=== PATIENT | female | born 1970 | race Caucasian/White ===

== ENCOUNTER → 2021-08-11 | Outpatient (CLI) | payer OTHER ==
--- NOTE | 2021-08-11 12:05 | Diagnostic Imaging Report ---
INDICATION: Patellar fracture AP, oblique and lateral views of left knee are obtained with sunrise view. There is no previous study available at this time for comparison. No acute fracture or malalignment is identified. There is no significant hemarthrosis. Linear lucency is seen along the anterior, lateral aspect of the patella which may represent site of previous fracture. There is no evidence of articular surface irregularity. IMPRESSION: No acute abnormality is identified. Lucency is seen in the lateral patella which may be related to previous injury. Dictated by: Dictated on workstation # [id number]
== END ==
LOC: RAD FS 11:32
PROVIDERS: ATTEND Nurse Practitioner
DX: S82.092A Other fracture of left patella, initial encounter for closed fracture (principal); X58.XXXA Exposure to other specified factors, initial encounter
CPT/HCPCS: 73562

== ENCOUNTER → 2021-09-01 | Outpatient (CLI) | payer OTHER ==
--- NOTE | 2021-09-01 13:33 | Diagnostic Imaging Report ---
INDICATION: Follow-up patellar fracture. TIME OF EXAM: 11:10 a.m. COMPARISON: Comparison is made with prior radiographs from 08/11/2021. FINDINGS: Patellar alignment is stable. The fracture involving the lateral aspect of the patella is less apparent and more blurred on today's study consistent with healing fracture. Joint spaces are well maintained. Articular surfaces are smooth. There is no effusion. IMPRESSION: Healing patellar fracture. Dictated by: Dictated on workstation # [id number]
== END ==
LOC: RAD FS 10:28
PROVIDERS: ATTEND Nurse Practitioner
DX: S82.092D Other fracture of left patella, subsequent encounter for closed fracture with routine healing (principal); X58.XXXD Exposure to other specified factors, subsequent encounter
CPT/HCPCS: 73562